=== PATIENT | female | born 1985 | race Caucasian/White ===

== ENCOUNTER 2018-10-11 15:45 | Emergency (ER) | payer OTHER ==
[~2018-10-11] VITALS: Ht 162.6 cm; Wt 80.3 kg
[2018-10-11 15:52] VITALS: Ht 162.6 cm; Wt 80.3 kg
[2018-10-11 17:39] VITALS: BP 118/85
== END 2018-10-11 17:40 | disposition home or self-care (01) ==
LOC: ED 15:45
DX: S61.213A Laceration without foreign body of left middle finger without damage to nail, initial encounter (principal); Z88.5 Allergy status to narcotic agent; W26.0XXA Contact with knife, initial encounter; Y93.89 Activity, other specified; Y92.89 Other specified places as the place of occurrence of the external cause; Y99.8 Other external cause status
CPT/HCPCS: 90715; J3490

== ENCOUNTER 2018-10-13 12:41 | Emergency (ER) | payer OTHER ==
[~2018-10-13] VITALS: Ht 162.6 cm; Wt 80.3 kg
[2018-10-13 12:44] VITALS: Ht 162.6 cm; Wt 80.3 kg
[2018-10-13 13:27] VITALS: BP 129/85
== END 2018-10-13 13:27 | disposition home or self-care (01) ==
LOC: ED 12:41
DX: S61.213D Laceration without foreign body of left middle finger without damage to nail, subsequent encounter (principal); Z88.6 Allergy status to analgesic agent; W26.0XXD Contact with knife, subsequent encounter